=== PATIENT | female | born 1960 | race Caucasian/White ===

== ENCOUNTER 2023-11-27 15:41 | Emergency (ER) | payer MEDICARE, SELFPAY ==
[2023-11-27 15:41] VITALS: BP 143/119; PULSE 71; RESP 19; TEMP 36.2; O2SAT 100; BMI 27.6
--- NOTE | 2023-11-27 16:50 | ED.VIS.FEGU ---
HPI HPI - Female History of Present Illness Chief Complaint: Vag Bleeding Informant: patient Narrative Narrative: Recurrent vaginal bleeding last 2 days worse today with clots. Visiting from [place] for a . Total hysterectomy in the past. She is on Xarelto for history of multiple PEs. She had bleeding last week was seen by gynecology this past Saturday in [place]. Reported there was a right vaginal canal bleeding that was biopsied. There is no repair of the bleeding. She states they are able to control initially. She continue Xarelto she just came up. 2 days ago bleeding started up again. She called the gynecology office was told to hold her Xarelto. She has not taken her last 2 days. Bleeding subsided however restarted today with clots. Going through soaked pads every time she urinates. However there is been increasing clots. Reports some lightheaded symptoms. History anemia in the past states has been transfused years ago however none recently. [facility] Medical History Avascular necrosis Gastroparesis Hypertension Hypothyroidism MRSA (methicillin resistant Staphylococcus aureus) Pulmonary embolism Allergy/AdvReac Type Severity Reaction Status Date / Time Iodinated Contrast Media Allergy Severe Angioedema Verified 11/27/23 15:44 [id number] [From Nubain] Allergy Intermediate Rash Verified 11/27/23 15:44 Sulfa (Sulfonamide Allergy Intermediate Rash Verified 11/27/23 15:44 Antibiotics) [email or web address] [From Ambien] AdvReac Mild Other Verified 11/27/23 15:44 Surgical History Joint replaced Social History Smoking Status: Never smoker ROS ROS ED Constitutional Constitutional ED: Denies chills, fever(s) or sweats Eyes Eyes: Denies change in vision ENT ENT ED: Denies dysphagia or sore throat Cardiovascular Cardiovascular: Denies chest pain, leg edema, palpitations or racing heartbeat Respiratory/Chest Respiratory/Chest: Denies cough, dyspnea or dyspnea on exertion Gastrointestinal Gastrointestinal: Denies abdominal pain, diarrhea, nausea or vomiting Genitourinary Genitourinary ED: Reports other Details: Vaginal bleeding ; Denies dysuria, hematuria or urinary frequency Musculoskeletal Musculoskeletal: Denies back pain, extremity pain or neck pain Integumentary Denies rash or wounds Neurologic Neurologic: Denies headache(s), paresthesias or weakness EXAM Physical Exam Const Vital Signs: 11/27/23 15:41 11/27/23 17:41 Temperature 97.2 F L 98.2 F Temperature Source Temporal Pulse Rate 71 75 Respiratory Rate 19 H 16 Blood Pressure 143/119 H 124/98 H Blood Pressure Mean 127 106 Pulse Ox 100 92 Oxygen Delivery Method Room Air Positive well nourished and well developed General Appearance ED: well developed and NAD HEENT Reports moist mucous membranes normocephalic and atraumatic Eyes PERRL and EOMs intact bilaterally Eyes Narrative: Slight pallor of the sclera. General Eye ED: Yes normal appearance of both eyes Neck no lymphadenopathy and supple General: Negative for tenderness Chest Wall Chest: Negative for tenderness Resp normal respiratory effort and normal air movement Effort and Inspection: symmetric chest movement; Negative for respiratory distress Cardio regular rate, regular rhythm and no murmurs Peripheral Pulses: pulses 2+ throughout GI normal to inspection, nondistended, normoactive bowel sounds and non-tender Palpation: Negative for guarding or rebound tenderness present Narrative: Nursing present for pelvic exam. Initial speculum exam there was old blood in vaginal vault, manipulation speculum noted open lesion to the right side, there was tissue healing along with a small clot that was not bleeding. Back/Spine no CVA tenderness and no thoracic nor lumbar tenderness Extremity normal to inspection General Extremety ED: Negative for edema or tenderness General Extremity: Negative for edema Neuro oriented x3 and no sensory deficits noted Sensorium / Orientation: awake and alert Skin no rashes or lesions noted and no wounds MDM MDM MDM Narrative Medical decision making narrative: Interventions / MDM: Differential diagnosis: Vaginal canal bleeding Diagnosis considered but do not suspect: N/A My EKG interpretation: N/A Imaging independently reviewed and interpreted by myself: N/A External documents reviewed: N/A Test considered but not ordered:N/A ED course: Patient nontoxic slight pallor conjunctiva. She has held her Xarelto for 2 days. Increasing bleeding therefore labs were drawn. Hemoglobin turn at 12.7. Pelvic exam performed with nursing, there was no active bleeding small clot with the area involved. Discussed with patient continue her Xarelto at this time with risk and benefits discussed with bleeding versus having PEs. She will monitor symptoms discussed with worsening bleeding more than 2 pads every hour for 4 hours, return to ED for reevaluation. All questions were answered. Re-evaluation: stable Disposition discussed with patient/family/significant other: Patient and significant other Case discussed with consulting clinician: N/A This note was generated with [employer] dictation software. It may contain incorrect words, spelling, and punctuation that were not noted in checking the note before signing. Lab Data Attestation: I reviewed the patient's lab results. Labs: Laboratory Results - last 24 hr 11/27/23 11/27/23 16:37 17:05 WBC 6.9 RBC 4.12 L Hgb 12.7 Hct 39.5 MCV 95.9 MCH 30.8 MCHC 32.2 RDW Std Deviation 44.9 H RDW Coeff of Pebbles 12.7 Plt Count 285 MPV 9.2 Immature Gran % (Auto) 0.400 Neut % (Auto) 46.9 L Lymph % (Auto) 38.6 [place] % (Auto) 11.6 H Eos % (Auto) 1.9 Baso % (Auto) 0.6 Absolute Neuts (auto) 3.2 Absolute Lymphs (auto) 2.67 Nucleated RBC % 0 PT 14.3 INR 1.1 APTT 38.0 H Sodium 139 Potassium 4.7 Chloride 105 Carbon Dioxide 28.0 Anion Gap 6 BUN 16 Creatinine 1.03 H Estim Creat Clear Calc 62.40 Est GFR (MDRD) Af Amer 70 Est GFR (MDRD) Non-Af 58 L BUN/Creatinine Ratio 15.5 Glucose 109 H Calcium 9.2 Blood Type O NEGATIVE Antibody Screen NEGATIVE Discharge Plan Triage Chief Complaint: Vag Bleeding ED Provider: Gokul Lombardo Dx/Rx/DC Orders Clinical Impression: Abnormal vaginal bleeding, History of pulmonary embolism Instructions: ED Dysfunctional Uterine Bleeding Primary Care Provider: Care Physician,No Primary Referrals: Care Physician,No Primary [Primary Care Provider] - Activity Restrictions/Additional Instructions: You had bleeding from your right sided vaginal wall started before your biopsy this past Saturday in [place]. Currently tissue structures with stable clot noted. There is no active bleeding. Continue to hold your Xarelto as discussed with your stacker attendant As this will increase your risk for bleeds. You have increased of recurrent pulmonary embolism while off Xarelto. If he rebleeds going through more than 2 so pads an hour for 4 hours, return to the ED for reevaluation. Hemoglobin is 12.6 today. Disposition Disposition: Home, Self Care Discharge Date/Time: 11/27/23 17:50
[2023-11-27 16:55] LABS: Absolute Lymphocyte Count 2.67 X10^3/uL (0.83-4.51); Absolute Neutrophil Count 3.2 X10^3/uL (2.0-7.7); Basophil# 0.04 X10^3/uL; Basophil% 0.6 % (0-1); Eosinophil# 0.13 X10^3/uL; Eosinophils% 1.9 % (0-5); Hematocrit 39.5 % (37-47); Hemoglobin 12.7 g/dL (12.0-15.0); Lymphocyte # 2.67 X10^3/ul (0.83-4.51); Lymphocyte % 38.6 % (19-41); Mean Corp Hgb Conc 32.2 g/dL (32-36); Mean Corpuscular Hgb 30.8 pg (27.0-32.0); Mean Corpuscular Volume 95.9 fL (81-99); Mean Platelet Vol. 9.2 fl (6.2-12.0); Monocyte% 11.6 % (0-10); NRBC Flagged by Analyzer 0 % (0-5); Neutrophil # 3.24 X10^3/uL (2.7-7.7); Neutrophil % 46.9 % (47-70); Platelet Count 285 K/mm3 (150-450); RBC Distribution Width CV 12.7 % (11.6-14.6); RBC Distribution Width SD 44.9 fl (35.1-43.9); Red Blood Count 4.12 M/mm3 (4.2-5.4); White Blood Count 6.9 K/mm3 (4.4-11.0)
[2023-11-27 17:12] LABS: Anion Gap 6 (5-15); BUN 16 mg/dL (7-18); BUN/Creat Ratio 15.5 RATIO (10-20); Calcium,Total 9.2 mg/dL (8.5-10.1); Chloride 105 mmol/L (98-107); Creatinine, Serum 1.03 mg/dL (0.55-1.02); EST Glomerular Filtration Rate 58 mL/min (>60); Est Glom Filt Rate - Afr Amer 70 mL/min (>60); Glucose 109 mg/dL (74-106); Potassium 4.7 mmol/L (3.5-5.1); Sodium Level 139 mmol/L (136-145)
[2023-11-27 17:41] VITALS: BP 124/98; PULSE 75; RESP 16; TEMP 36.8; O2SAT 92
[2023-11-27 17:42] LABS: International Normalized Ratio 1.1; Prothrombin Time (Protime)PT. 14.3 SECONDS (11.7-14.9)
== END 2023-11-27 17:50 | disposition home or self-care (01) ==
PROVIDERS: Emergency Provider Emergency Medicine; Visit Provider Emergency Medicine
DX: N93.9 Abnormal uterine and vaginal bleeding, unspecified (principal); Z90.710 Acquired absence of both cervix and uterus; Z86.711 Personal history of pulmonary embolism; Z79.01 Long term (current) use of anticoagulants; I10 Essential (primary) hypertension
CPT/HCPCS: 80048; 85025; 85610; 85730; 86850; 86900; 86901; 99283; A4216